=== PATIENT | male | born 1945 | race Caucasian/White ===

== ENCOUNTER 2022-10-27 17:02 | Emergency (ER) | payer MEDICARE, BC ==
[~2022-10-27] VITALS: Ht 175.3 cm; Wt 81.6 kg
[2022-10-27] MEDS ORDERED: LEXAPRO (17:17)
[2022-10-27] MEDS ORDERED: METFORMIN (17:17)
[2022-10-27] MEDS ORDERED: HYDR-4209 PO (19:20)
--- NOTE | 2022-10-27 19:30 | NUR ---
Patient discharged to home in stable condition. Verbal after care instructions given by Dr. Lisa due to printer technical difficulties. Patient verbalizes understanding of instructions. Stressed follow up or return to ER for worsening s/s.
[2022-10-27 21:13] VITALS: BP 107/61
== END 2022-10-27 21:13 | disposition home or self-care (01) ==
LOC: ER 17:02
DX: S09.90XA Unspecified injury of head, initial encounter (principal); S16.1XXA Strain of muscle, fascia and tendon at neck level, initial encounter; S39.92XA Unspecified injury of lower back, initial encounter; W01.0XXA Fall on same level from slipping, tripping and stumbling without subsequent striking against object, initial encounter; Y92.89 Other specified places as the place of occurrence of the external cause; R73.03 Prediabetes; I25.10 Atherosclerotic heart disease of native coronary artery without angina pectoris; Z95.5 Presence of coronary angioplasty implant and graft; Z79.85 Long-term (current) use of injectable non-insulin antidiabetic drugs
CPT/HCPCS: 70450; 72125; 72131; A4663